=== PATIENT | female | born 2000 | race Caucasian/White ===

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

== ENCOUNTER 2019-03-24 13:24 | Emergency (ER) | payer BC ==
[2019-03-24 16:16] VITALS: BP 122/81
--- NOTE | 2019-03-24 16:19 | UC ---
Respiratory Complaint HPI - HPI Summary HPI Summary: PATIENT WENT TO [facility] ABOUT 10 DAYS AGO AND WAS DIAGNOSED CLINICALLY WITH THE FLU. PATIENT REPORTS SHE WAS GIVEN TAMIFLU AND ALSO AN ANTIBIOTIC TO COVER FOR "SOMETHING RESPIRATORY". STATES THAT SINCE THEN SHE FEELS BETTER EXCEPT FOR A PERSISTENT COUGH AND SOME HOARSENESS IN HER VOICE. TODAY NOTICED SOME BRIGHT RED BLOOD IN HER SPUTUM SO CAME IN FOR FURTHER EVALUATION. SHE DENIES SOB, WHEEZE, CP. DENIES FEVER. - History of Current Complaint Chief Complaint: UCRespiratory Stated Complaint: COUGHING UP BLOOD Time Seen by Provider: 03/24/19 14:44 Hx Obtained From: Patient, Family/Data Analyst Report Writer - DAD Hx Last Menstrual Period: Onset/Duration: Gradual Onset, Lasting Days, Still Present Timing: Constant Severity Initially: Moderate Severity Currently: Moderate Pain Intensity: 7 Pain Scale Used: 0-10 Numeric Character: Cough: Productive Aggravating Factors: Nothing Alleviating Factors: Nothing Associated Signs And Symptoms: Positive: Hemoptysis, Hoarseness. Negative: Dyspnea, Fever, Chills, Wheezing - Allergies/Home Medications Allergies/Adverse Reactions: Allergies Allergy/AdvReac Type Severity Reaction Status Date / Time bee venom protein (honey bee) Allergy Hives Verified 03/24/19 14:02 Home Medications: Home Medications Sertraline* [Zoloft*] 100 mg PO DAILY 03/24/19 [History Confirmed 03/24/19] PMH/Surg Hx/FS Hx/Imm Hx Previously Healthy: Yes - Surgical History Surgical History: None - Family History Known Family History: Negative: Cardiac Disease, Hypertension, Diabetes Family History: Mother with depression. FHx of bipolar disorder. - Social History Alcohol Use: Weekly Substance Use Type: Other Substance Use Comment - Amount & Last Used: CBD Smoking Status (MU): Never Smoked Tobacco - Immunization History Most Recent Influenza Vaccination: 10/28/17 Most Recent Pneumonia Vaccination: N/A Review of Systems All Other Systems Reviewed And Are Negative: Yes Constitutional: Positive: Negative Eyes: Positive: Negative ENT: Positive: Negative Respiratory: Positive: Cough, Other - HEMOPTYSIS Cardiovascular: Positive: Negative Gastrointestinal: Positive: Negative Physical Exam Triage Information Reviewed: Yes Appearance: Well-Appearing, No Pain Distress, Well-Nourished Vital Signs: Initial Vital Signs Temp 100.2 F 03/24/19 13:57 Pulse 84 03/24/19 13:57 Resp 16 03/24/19 13:57 BP 110/72 03/24/19 13:57 Pulse Ox 100 03/24/19 13:57 Vital Signs Reviewed: Yes Eyes: Positive: Conjunctiva Clear ENT: Positive: Hearing grossly normal, Pharynx normal, Hoarse voice. Negative: Nasal congestion, Tonsillar swelling, Tonsillar exudate Neck: Positive: Supple, No Lymphadenopathy Respiratory Exam: Normal Cardiovascular Exam: Normal Abdomen Description: Positive: Nontender, Soft Musculoskeletal: Positive: No Edema Neurological: Positive: Alert Psychological: Positive: Age Appropriate Behavior Skin: Negative: Rashes Respiratory Course/Dx - Course Course Of Treatment: CHEST XRAY UNREMARKABLE. PATIENT COMPLAINT OF HEMOPTYSIS IS LIKELY DUE TO PERSISTENT AIRWAY INFLAMMATION AFTER HER RECENT ILLNESS. WILL TREAT WITH PREDNISONE AND ALBUTEROL. COUGH MEDICINE NEEDED. ADVISED TO FOLLOW-UP WITH HER PCP IF HER SYMPTOMS DO NOT RESOLVE WITH TREATMENT. NO INDICATION FOR FURTHER ANTIBIOTICS TODAY. - Differential Dx/Diagnosis Provider Diagnosis: Acute bronchitis, Hemoptysis Discharge ED - Sign-Out/Discharge Documenting (check all that apply): Patient Departure All imaging exams completed and their final reports reviewed: Yes - Discharge Plan Condition: Stable Disposition: HOME Prescriptions: Albuterol HFA INHALER* [Ventolin HFA Inhaler*] 2 puff INH Q4H PRN #1 mdi PRN Reason: Shortness Of Breath Benzonatate CAP* [Tessalon CAP*] 1 - 2 cap PO TID PRN #30 cap PRN Reason: Cough predniSONE 20 mg TAB [Deltasone 20 MG TAB*] 40 mg PO DAILY #10 tab Patient Education Materials: Acute Bronchitis (ED), Hemoptysis (ED) Referrals: Yanely Lewis MD [Primary Care Provider] - If Needed Additional Instructions: YOUR SYMPTOM OF COUGHING UP BLOOD IS LIKELY DUE TO AIRWAY INFLAMMATION FROM YOUR RECENT ILLNESS AND WILL RESOLVE YOUR RESPIRATORY CONDITION RESOLVES. CHEST XRAY TODAY UNREMARKABLE. TAKE THE PREDNISONE ONCE DAILY PRESCRIBED TO HELP WITH AIRWAY INFLAMMATION. ALBUTEROL NEEDED. I RECOMMEND YOU INHALE 2 PUFFS BEFORE BED AND IN THE MORNING WHILE YOU ARE STILL COUGHING. TESSALON MAY ALSO HELP WITH YOUR COUGH. STAY WELL RESTED AND HYDRATED. NO INDICATION FOR ANY MORE ANTIBIOTICS AT PRESENT. SEEK FOLLOW-UP WITH YOUR PCP IF YOUR SYMPTOMS DO NOT IMPROVE WITH THIS TREATMENT. YOU MAY BENEFIT FROM A CT SCAN. - Billing Disposition and Condition Condition: STABLE Disposition: Home
== END 2019-03-24 16:18 | disposition home or self-care (01) ==
LOC: UCEAST 13:24
DX: J20.9 Acute bronchitis, unspecified (principal); R04.2 Hemoptysis; Z91.030 Bee allergy status
CPT/HCPCS: 71046; 99212; G0463